=== PATIENT | female | born 1955 | race Caucasian/White ===

== ENCOUNTER → 2017-12-21 | Outpatient (CLI) | payer OTHER | LOC: ULTRA 07:43 | DX: M79.605 Pain in left leg (principal); M79.89 Other specified soft tissue disorders ==

== ENCOUNTER → 2019-01-18 | Outpatient (CLI) | payer OTHER ==
[~2019-01-18] VITALS: Ht 170.2 cm; Wt 57.6 kg
[~2019-01-18] MED LIST: ATENOLOL 50MG T50 M1 PO; HYDROCHLOROTHIA25 M2 PO; SYMBICORT160 MCG/4. INH; VENTOLIN HFA 1818 GM INH
--- NOTE | 2019-01-21 11:46 | P ---
[facility] [place] [address] PROCEDURE REPORT Name: GEORGES URIAS Room #: REG [facility]#: [id number] Admission: 01/18/19 ������������������ Attend Phys: Jimmy Mauro MD Discharge: ������������������ Date of : 51 Report #: [id number] THIS REPORT FOR: //name// CC: Jimmy Fowler MD BRIEF HISTORY: The patient is a 63-year-old woman for her first time screening colonoscopy. PREOPERATIVE DIAGNOSIS: Screening colonoscopy. POSTOPERATIVE DIAGNOSES: 1. Multiple colon polyps. 2. Moderate sigmoid diverticulosis coli. 3. Small internal hemorrhoids. MEDICATIONS: Deep sedation with propofol per Anesthesia. SPECIMENS: 1. Cecal polyp. 2. Polyp, mid transverse colon. 3. Polyp at 40 cm. 4. Polyp at 25 cm. ESTIMATED BLOOD LOSS: 3 mL. PROCEDURE: Colonoscopy to cecum and terminal ileum with snare polypectomy and biopsy. FINDINGS: Prior to propofol sedation, procedure of colonoscopy discussed with the patient as well as potential risks and its complications. She indicates she understands and desires to proceed. DESCRIPTION OF PROCEDURE: With the patient in left lateral decubitus position, digital examination was completed, which revealed no abnormalities. Subsequently, the Olympus video colonoscope was introduced in the rectum, advanced under direct vision to the cecum. She had a tortuous and difficult sigmoid colon. However, once we got the scope to the level of the sigmoid colon, scope passed easily into the proximal colon. The scope was then advanced across the ileocecal valve and the distal segment of terminal ileum, which was inspected and noted to be unremarkable. At that point, the scope was slowly withdrawn and careful circumferential views obtained. Upon slow withdrawal of the scope, the prep was excellent. The mucosa was within normal limits, normal vascular pattern, normal light reflex. As we withdrew the scope, she was found to have a 5 x 5 mm polyp in the cecum, which was removed by cold snare polypectomy and recovered. The scope was further withdrawn and a 7 x 8 mm [facility] [address] [place] [address] PROCEDURE REPORT Name: GEORGES URIAS Room #: REG [facility].#: [id number] Admission: 01/18/19 ������������������ Attend Phys: Jimmy Mauro MD Discharge: ������������������ Date of : 51 Report #: [id number] sessile polyp on a narrow base was seen and removed by cold snare polypectomy in the mid transverse colon. Scope was further withdrawn and no additional abnormalities were noted until about 40 cm, at which point, a 6 x 6 sessile polyp was seen and removed by cold snare polypectomy. In addition, at the sigmoid colon, there was noted to be moderately severe diverticular disease without endoscopic evidence of diverticulitis. At 25 cm, a diminutive polyp was seen and removed with biopsy forceps. Scope was further withdrawn and no additional polyps were seen. Upon retroflexion of the rectum, no abnormalities were seen. Scope was withdrawn and the patient tolerated the procedure well. CONDITION OF THE PATIENT UPON DISCHARGE: Following procedure, the patient drowsy, aroused, conversant and will be discharged home when fully ambulatory INSTRUCTIONS TO THE PATIENT AND FAMILY AT THE TIME OF DISCHARGE: Four polyps identified and removed as described above. We will follow up on the pathology. However, at this point in time, I would suggest she return in 3 years for a high risk screening colonoscopy. This is the patient's first colonoscopy. Withdrawal time from the cecum was 13 minutes 24 seconds. ��������������������������������������������� <ELECTRONICALLY SIGNED> ���������������������������������������� By: Jimmy Mauro MD ��������������������������������������������� 01/21/19 1146 [id number] 0150 Jimmy Mauro MD /nt
--- NOTE | 2019-01-21 18:05 | PATH ---
[facility] [place] [address] PATHOLOGY RPT PROCEDURE Name: GEORGES URIAS Room #: REG [facility].#: [id number] ������������������ Admission: 01/18/19 ������������������ Date of : 51 Discharge: Report #: [id number] Path Case #: [id number] [facility] Accession Number: [id number] . 01 Material submitted: . PART A: cecum - POLYP AT CECUM PART B: colon - POLYP AT MID TRANSVERSE COLON. Modifiers: mid, transverse PART C: colon - POLYP AT 40CM PART D: colon - BX POLYP AT 25CM . 01 Clinical history: . Pre-OP DX: Screening Post-OP DX: Colon polyps, diverticulosis, hemorrhoids . 02 Diagnosis: A. Polyp, at cecum, endoscopic biopsy: - Inflamed tubular adenoma. - Negative for high-grade dysplasia. . B. Polyp, at mid transverse colon, endoscopic biopsy: - Tubular adenoma. - Negative for high-grade dysplasia. . C. Polyp, at 40 cm, endoscopic biopsy: - Tubular adenoma. - Negative for high-grade dysplasia. . D. Polyp, at 25 cm, endoscopic biopsy: - Hyperplastic polyp. - Negative for dysplasia. . (IUV:rand sewer; 01/21/2019) MBR/01/21/2019 . 02 Electronically signed: . Radha Mckenna MD, Pathologist NPI- [id number] . 01 Gross description: . A. Received in formalin labeled "Georges Urias, polyp at cecum," is a single segment of solano soft tissue measuring 0.4 cm in maximum dimension. The specimen is entirely submitted in cassette A1. . B. Received in formalin labeled "Georges Urias, polyp at mid transverse colon," is a 0.8 x 0.5 x 0.5 cm polypoid piece of solano soft tissue. The margin is inked and the tissue is sectioned perpendicular to the margin and submitted in its entirely [place] [address] PATHOLOGY RPT PROCEDURE Name: GEORGES URIAS Room #: REG [facility]#: [id number] ������������������ Admission: 01/18/19 ������������������ Date of : 53 Discharge: Report #: [id number] Path Case #: [id number] . C. Received in formalin labeled "Georges Urias, polyp at 40 cm," are 2 segments of solano soft tissue measuring 1.1 x 0.5 x 0.5 cm in aggregate dimensions and ranging from 0.5 to 0.6 cm in maximum dimension. The specimen is submitted entirely in cassette C1. . D. Received in formalin labeled "Georges Urias, BX polyp at 25 cm," is a single segment of solano soft tissue measuring 0.4 cm in maximum dimension. The specimen is entirely submitted in cassette D1. (TSD; 01/18/2019) TOB/TOB . 02 Pathologist provided ICD-10: D12.0, D12.3, D12.6, K63.5 . 02 CPT . 928544, 097220, 435523, 033693 Specimen Comment: A courtesy copy of this report has been sent to Specimen Comment: [phone], . Specimen Comment: Report sent to / DR MADRID Performed at: [address], [place], [place] [id number] MD Yossi Peng MD Phone: [phone] Performed at: [address] [id number] MD Radha Mckenna MD Phone: [phone]
== END | disposition home or self-care (01) ==
LOC: GI 07:58
DX: Z12.11 Encounter for screening for malignant neoplasm of colon (principal); D12.0 Benign neoplasm of cecum; D12.3 Benign neoplasm of transverse colon; D12.5 Benign neoplasm of sigmoid colon; K63.5 Polyp of colon; K57.30 Diverticulosis of large intestine without perforation or abscess without bleeding; K64.8 Other hemorrhoids; Z87.891 Personal history of nicotine dependence; J45.909 Unspecified asthma, uncomplicated; I10 Essential (primary) hypertension; Z85.42 Personal history of malignant neoplasm of other parts of uterus; Z90.710 Acquired absence of both cervix and uterus
CPT/HCPCS: 62110; 62900

== ENCOUNTER → 2020-03-20 | Outpatient (CLI) | payer OTHER | LOC: LAB 16:33 | PROVIDERS: ATTEND Family Medicine | DX: R50.9 Fever, unspecified (principal); R05 Cough; Z20.828 Contact with and (suspected) exposure to other viral communicable diseases ==

== ENCOUNTER → 2021-04-26 | Outpatient (CLI) | payer OTHER | LOC: NUC 13:59 | PROVIDERS: ATTEND Family Medicine | DX: Z12.31 Encounter for screening mammogram for malignant neoplasm of breast (principal); M81.0 Age-related osteoporosis without current pathological fracture; N95.9 Unspecified menopausal and perimenopausal disorder; N91.2 Amenorrhea, unspecified ==

== ENCOUNTER 2021-07-25 14:37 | Observation (INO) | payer OTHER ==
[~2021-07-25] VITALS: Ht 170.2 cm; Wt 57.1 kg
--- NOTE | ~2021-07-25 | EMS ---
[address] [address] EMS Patient Care Report Name: GEORGES URIAS Room #: 209-P [facility].RCruz#: [id number] Admission: 07/25/21 Attend Phys: Blaze Fowler MD Discharge: Date of : 53 Report #: [id number] THIS REPORT FOR: //name// Report Transmitted: 07/26/2021 10:52 EMS Care Summary [place], [place]/[facility] Incident [id number] @ 07/25/2021 13:59 Incident Location [address] [place] [address] Patient GEORGES URIAS Female, 66 Years 1955 Patient Address [address] [place] [address] Patient History Asthma,Hypertension (HTN), Patient Allergies No known allergies, Chief Complaint SYNCOPE Disposition Transported No Lights/Smilax Dispatch Reason Unconscious/Fainting Transported To [facility] Narrative FAMILY CALLED 911 AFTER THE PATIENT HAD A SYNCOPE EPISODE WHILE SHE WAS COOKING IN THE KITCHEN. PATIENT WAS FOUND SITTING UPRIGHT ON THE KITCHEN FLOOR WITH R9 AT HER SIDE. PATIENT COMPLAINED OF FEELING DIZZY WHEN STANDING AND PAIN ON THE BACK OF HER HEAD AFTER SHE FELL. NO GROSS TRAUMA OR BLEEDING NOTED. PATIENT STATED THAT SHE [facility] [address] [place] [address] EMS Patient Care Report Name: GEORGES URIAS Room #: 209-P [facility]#: [id number] Admission: 07/25/21 Attend Phys: Blaze Fowler MD Discharge: Date of : 51 Report #: [id number] HAS BEEN FEELING DIZZY ON/OFF FOR SOMETIME. PATIENT DENIED ANY CHEST PAIN OR SOB. PATIENT WAS LOADED INTO THE AMBULANCE. VITALS ASSESSED AND IV OBTAIND. PATIENT APPEARED TO BE IN AFIB. PATIENT PLACED ON LOW FLOW O2 FOR TRANSPORT. PATIENT MONITORED DURING TRANSPORT. REPORT WAS GIVEN TO HOSPITAL STAFF AND ALL CARE WAS THEN TRANSFERRED OVER TO HOSPTIAL STAFF. Initial Vitals @14:14P: 86,CO: 2,SpO2: 93,SD Suspected: false @14:10P: 87,R: 16,BP: 164/79,Pain: 0/10,GCS: 15,Glucose: 144,CO: 0,SpO2: 90,Revised Trauma: 12, @14:20P: 83,R: 16,BP: 138/80,Pain: 0/10,GCS: 15,CO: 1,SpO2: 98,Revised Trauma: 12, Assessments @14:08MENTAL:Time Oriented,Person Oriented,Place Oriented,Event Oriented,SKIN:HEENT:Head/Face: CLARK,Neck/Airway: No Abnormalities,LUNG SOUNDS:General: No Abnormalities,ABDOMEN:General: No Abnormalities,PELVIS//GI:No Abnormalities,EXTREMITIES:Left Arm: No Abnormalities,Right Arm: No Abnormalities,PULSE:NEURO:No Abnormalities, Impression Syncope / Fainting Procedures @14:08 ALS Assessment Response: UnchangedSucceeded @14:16 IV Therapy - Saline Lock 0cc (18 ga) Site: Antecubital-Left Response: UnchangedSucceeded @14:14 3-Lead ECG Response: UnchangedSucceeded @14:14 12-Lead ECG Response: UnchangedSucceeded @14:15 Oxygen FlowRate: 3 Device: Nasal Cannula (NC) Response: ImprovedSucceeded Timeline 13:58,Call Received 13:58,Dispatch Notified 13:59,Dispatched 14:00,En Route 14:06,On Scene 14:07,At Patient 14:08,ALS Assessment,Response: UnchangedSucceeded, 14:10,BP: 164/79 M,PULSE: 87,RR: 16 R,SPO2: 90 Ox,ETCO2: ,B,PAIN: 0,GCS: 15, 14:14,3-Lead ECG,Response: UnchangedSucceeded, 14:14,12-Lead ECG,Response: UnchangedSucceeded, 14:14,BP: / M,PULSE: 86,RR: R,SPO2: 93 Ox,ETCO2: ,BG: ,PAIN: ,GCS: , [facility] [address] [place] [address] EMS Patient Care Report Name: GEORGES URIAS Room #: 209-P [facility] M.R.#: [id number] Admission: 07/25/21 Attend Phys: Blaze Fowler MD Discharge: Date of : 51 Report #: [id number] 14:15,Oxygen FlowRate: 3 Device: Nasal Cannula (NC) Response: ImprovedSucceeded, 14:16,IV Therapy - Saline Lock 0cc 18 ga Site: Antecubital-Left,Response: UnchangedSucceeded, 14:17,Depart Scene 14:20,BP: 138/80 M,PULSE: 83,RR: 16 R,SPO2: 98 Ox,ETCO2: ,BG: ,PAIN: 0,GCS: 15, 14:42,At Destination 14:56,Call Closed Disclaimer v1.1 Copyright 2020 [employer] This EMS Care Summary contains data elements from the applicable legal record (which may be displayed differently). It is designed to provide pertinent information for the following purposes: continuity of care, clinical quality, and state data reporting. The complete legal record is available to ED staff and administrators of the receiving hospital in [employer]'s Patient Tracker. All data is provided "as is."
[2021-07-25 14:38] VITALS: BP 122/54
[2021-07-25 15:28] LABS: ABSOLUTE NEUTROPHILS 4.2 thou/uL (1.4-8.2); BASOPHILS 0.7 % (0.0-2.0); EOSINOPHILS 1.6 % (0.0-3.0); HEMATOCRIT 40.6 % (37.0-47.0); HEMOGLOBIN 13.4 gm/dL (12.0-15.0); LYMPHOCYTES 26.5 % (24.0-44.0); MCH 33.4 pg (26.0-34.0); MCV 101.2 fL (80.0-100.0); MONOCYTES 9.7 % (1.0-8.0); PLATELET COUNT 280 thou/uL (150-400); POLYS 61.5 % (36.0-66.0); RBC 4.01 mil/uL (4.20-5.00); RDW 12.9 % (10.5-14.5); WBC 6.8 thou/uL (4.0-11.0)
[2021-07-25 15:37] LABS: CALCIUM 8.3 mg/dL (8.5-10.1); CREATININE 0.7 mg/dL (0.6-1.0); POTASSIUM 3.9 mmol/L (3.5-5.1)
[2021-07-25 15:47] LABS: ALBUMIN 2.9 g/dL (3.4-5.0); TOTAL BILIRUBIN 0.4 mg/dL (0.2-1.0); TOTAL PROTEIN 6.4 g/dL (6.4-8.2)
[2021-07-25 17:08] VITALS: BP 126/43
[2021-07-25 17:32] VITALS: BP 152/78
[2021-07-25 18:40] LABS: CHOLESTEROL 202 mg/dL (<200); HDL CHOLESTEROL 73 mg/dL (>40); LDL CHOLESTEROL 50 mg/dL (<100); TC:HDL 2.8 Ratio (Not establshd); TRIGLYCERIDE 399 mg/dL (<150); VLDL 80 mg/dL (<40)
[2021-07-25 19:30] VITALS: BP 134/67
--- NOTE | 2021-07-25 19:52 | NUR ---
RECEIVED PT FROM THE ER. ADMISSION COMPLETED. VSS, AFEBRILE, PT SWITCHES BETWEEN SR AND AFIB ON THE MONITOR. C/O DIZZINESS, AND PAIN IN HEAD AND HIP WHERE SHE FELL PREVIOUSLY IN THE DAY. RX ACETAMINOPHEN GIVEN WITH SOME RELIEF. POC IS TO BEGIN CIWA PROTOCOL PER MD. CARDIOLOGY CONSULTED FOR AFIB RVR. PT COMMUNICATED UNDERSTANDING FOR CALLING PRIOR TO GETTING OUT OF BED. CALL LIGHT AND NEEDS WITHIN REACH. FALL PRECAUTIONS IN PLACE. NO CONCERNS AT THIS TIME.
[2021-07-26 03:53] VITALS: BP 127/68
[2021-07-26 04:06] LABS: GLYCOHEMOGLOBIN (HGB A1C) 5.2 % (4.8-5.6)
[2021-07-26 04:28] LABS: HEMATOCRIT 37.1 % (37.0-47.0); HEMOGLOBIN 12.3 gm/dL (12.0-15.0); MCH 33.6 pg (26.0-34.0); MCHC 33.3 g/dL (28.0-37.0); MCV 100.7 fL (80.0-100.0); RBC 3.68 mil/uL (4.20-5.00); RDW 12.9 % (10.5-14.5); WBC 4.9 thou/uL (4.0-11.0)
[2021-07-26 04:35] LABS: CALCIUM 8.3 mg/dL (8.5-10.1); CREATININE 0.5 mg/dL (0.6-1.0)
--- NOTE | 2021-07-26 06:46 | NUR ---
PT AMBULATING TO BATHROOM WITH ASSIST AND IS TOLERATING FAIR. DENIES PAIN. RESTING COMFORTABLY. NO NEEDS VOICED. CALL LIGHT WITHIN REACH. FREQUENT OBSERVATION.
--- NOTE | 2021-07-26 07:09 | EKG ---
[address] [address] ELECTROCARDIOGRAM REPORT Name: BRIDGETTSUSANNEGEORGES MASSIEL Room #: 209-P [facility]#: [id number] Admission: 07/25/21 Attend Phys: Charlene Pepe MD Discharge: Date of : 51 Report #: [id number] [facility] ED Test Date: 2021-07-25 Test Time: 14:40:35 Pat Name: GEORGES URIAS Department: Room: [facility] Gender: F Machine Biller: SAMANTHA : 1955 Requested By: Antwan Lopez Order Number: [id number] MD: Jesse Moran Measurements Intervals [place] Rate: 73 P: 76 HI: 154 QRS: 33 QRSD: 89 T: 44 QT: 389 QTc: 429 Interpretive Statements Sinus rhythm Atrial premature complexes No previous ECG available for comparison Electronically Signed On 07-26-2021 7:08:46 CDT by Jesse Moran [email or web address] <ELECTRONICALLY SIGNED> By: Jesse Moran MD, [facility] 07/26/21 0708 1440 1440 Jesse Moran MD, FACC /EPI
--- NOTE | 2021-07-26 10:16 | 2DMMODE ---
[facility] [place] [address] 2 D/M-MODE ECHOCARDIOGRAM Name: GEORGES URIAS Room #: 209-P [facility] M.R.#: [id number] Admission: 07/25/21 Attend Phys: Blaze Fowler MD Discharge: Date of : 53 Report #: [id number] THIS REPORT FOR: cc: Blaze Fowler MD, Neal A. MD Santiago, Patrick MD [facility] ~ APPROVED REPORT Study performed: 07/26/2021 09:38:29 EXAM: Comprehensive 2D, Doppler, and color-flow Echocardiogram Patient Location: Bedside Room #: 209 Status: routine BSA: 1.66 HR: 76 bpm BP: 125/59 mmHg Rhythm: NSR Other Information Study Quality: Adequate Indications Syncope, Afib. Hx: HTN, ETOH abuse. 2D Dimensions IVSd: 9.28 (7-11mm) LVOT Diam: 20.55 (18-24mm) LVDd: 44.78 mm PWd: 8.84 (7-11mm) LVDs: 30.26 (25-40mm) Left Atrium: 25.55 (27-40mm) Aortic Root: 33.04 mm Volumes Left Atrial Volume (Systole) Single Plane 4CH: 22.34 mL Single Plane 2CH: 27.37 mL LA ESV Index: 17.00 mL/m2 Aortic Valve AoV Peak Lewis.: 1.20 m/s AO Peak Gr.: 5.72 mmHg LVOT Max P.97 mmHg LVOT Max V: 1.22 m/s SAMMY Vmax: 3.39 cm2 [facility] [address] [place] [address] 2 D/M-MODE ECHOCARDIOGRAM Name: GEORGES URIAS Room #: 209-P [facility]#: [id number] Admission: 07/25/21 Attend Phys: Blaze Fowler, Discharge: Date of : 51 Report #: [id number] AI Vmax: 3.99 m/s AI [place]: 2.44 m/s2 AI PHT: 474.17 ms Mitral Valve E/A Ratio: 1.2 MV Decel. Time: 245.41 ms MV E Max Lewis.: 0.83 m/s MV A Lewis.: 0.67 m/s MV PHT: 71.17 ms IVRT: 100.35 ms Pulmonary Valve PV Peak Lewis.: 0.88 m/s PV Peak Gr.: 3.09 mmHg Pulmonary Vein P Vein S: 0.49 m/s P Vein D: 0.39 m/s P Vein S/D Ratio: 1.26 Tricuspid Valve RAP Estimate: 5.00 mmHg Left Ventricle The left ventricle is normal size. There is normal LV segmental wall motion. There is normal left ventricular wall thickness. Left ventricular systolic function is normal. LVEF is 60-65%. Right Ventricle The right ventricle is normal size. The right ventricular systolic function is normal. Atria The left atrium size is normal. The right atrium size is normal. Aortic Valve The aortic valve is normal in structure. Trace aortic regurgitation. There is no aortic valvular stenosis. Mitral Valve The mitral valve is normal in structure. There is no mitral valve regurgitation noted. No evidence of mitral valve stenosis. Tricuspid Valve The tricuspid valve is normal in structure. There is no tricuspid [facility] [place] [address] 2 D/M-MODE ECHOCARDIOGRAM Name: GEORGES URIAS Room #: 209-P [facility] M.R.#: [id number] Admission: 07/25/21 Attend Phys: Blaze Fowler, Discharge: Date of : 51 Report #: [id number] valve regurgitation noted. Unable to assess PA pressure. Pulmonic Valve The pulmonary valve is normal in structure. Trace pulmonic regurgitation. Great Vessels The aortic root is normal in size. Ascending aorta is not well visualized. IVC is normal in size and collapses >50% with inspiration. Pericardium There is no pericardial effusion. <Conclusion> Normal left ventricle size/wall thickness Ejection fraction 60-65% Normal right ventricle size/function Normal atrial size Trace aortic valve insufficiency Normal mitral valve structure and function No tricuspid valve insufficiency Normal aortic root size No pericardial effusion Study performed in sinus rhythm <ELECTRONICALLY SIGNED> By: Macario Rojas MD, FACC 07/26/21 1016 1016 1016 Macario Rojas MD, FACC /INF
--- NOTE | 2021-07-26 10:41 | EKG ---
[address] [address] ELECTROCARDIOGRAM REPORT Name: GEORGES URIAS Room #: 209-[facility].#: [id number] Admission: 07/25/21 Attend Phys: Blaze Fowler MD Discharge: Date of : 51 Report #: [id number] [facility] Test Date: 2021-07-26 Test Time: 08:15:24 Pat Name: GEORGES URIAS Department: Room: 209 Gender: F Team Guide: RADHA : 1955 Requested By: Macario Rojas Order Number: [id number] MD: Macario Rojas Measurements Intervals [place] Rate: 78 P: 50 CT: 155 QRS: 6 QRSD: 95 T: 0 QT: 403 QTc: 460 Interpretive Statements Sinus rhythm Left atrial enlargement Nonspecific T abnormalities, anterior leads Baseline wander in lead(s) V6 Compared to ECG 07/25/2021 14:40:35 Atrial abnormality now present T-wave abnormality now present Atrial premature complex(es) no longer present Electronically Signed On 07-26-2021 10:41:05 CDT by Macario Rojas [email or web address] <ELECTRONICALLY SIGNED> By: Macario Rojas MD, FAC 07/26/21 1041 4 4 Macario Rojas MD, [facility] /EPI
[2021-07-26 12:32] VITALS: BP 143/83
[2021-07-26] MEDS ORDERED: CARDIZEM CD120 MG PO (15:21)
[2021-07-26] MEDS ORDERED: ELIQUIS5 MG PO (15:21)
[2021-07-26 15:52] VITALS: BP 143/83
--- NOTE | 2021-07-26 16:21 | NUR ---
PATIENT IS A/OX4, ABLE TO MAKE NEEDS KNOWN. VSS AFEBRILE. HR IS SR WITH EPISODES OF AFIB WITH RVR. PATIENT NPO THIS AM FOR NUCLEAR STRESS TEST. PATIENT ALSO HAD AN ECHO DONE TODAY. CONTINUES ON CIWA PROTOCOL BUT SCORING A ZERO ALL DAY. C/O RIGHT HIP PAIN 2/10, TYLENOL EFFECTIVE AT TREATING PAIN. PATIENT NEW ORDERS TO DC HOME. EDUCATED PATIENT ON DISCHARGE INSTRUCTION, NEW MEDICATIONS AND FOLLOW UP APPOINTMENTS;PATIENT VERBALIZED FULL UNDERSTANDING AT THIS TIME. PATIENT LEFT HOSPITAL VIA WC. SPOUSE TOOK PATIENT HOME.
[2021-07-26 16:31] VITALS: BP 119/92
== END 2021-07-26 16:44 | disposition home or self-care (01) ==
LOC: ER 14:37 → 2N 16:19 → EROBS 16:19 → 2N 16:53
PROVIDERS: Emergency Medicine; Internal Medicine; ADMIT Family Medicine; ATTEND Family Medicine
DX: R55 Syncope and collapse (principal); Z20.822 Contact with and (suspected) exposure to COVID-19; I48.20 Chronic atrial fibrillation, unspecified; I10 Essential (primary) hypertension; E03.9 Hypothyroidism, unspecified; J45.909 Unspecified asthma, uncomplicated; M81.0 Age-related osteoporosis without current pathological fracture; F10.10 Alcohol abuse, uncomplicated; Z79.82 Long term (current) use of aspirin; Z79.899 Other long term (current) drug therapy; Z87.891 Personal history of nicotine dependence; Z85.41 Personal history of malignant neoplasm of cervix uteri

== ENCOUNTER → 2021-08-09 | Outpatient (CLI) | payer OTHER ==
[~2021-08-09] MED LIST changes: +CARDIZEM CD120 MG PO; +ELIQUIS5 MG PO
== END ==
LOC: SJCVC 10:28
PROVIDERS: ATTEND Internal Medicine
DX: R94.31 Abnormal electrocardiogram [ECG] [EKG] (principal); I48.91 Unspecified atrial fibrillation; E78.1 Pure hyperglyceridemia; Z72.89 Other problems related to lifestyle

== ENCOUNTER → 2021-10-18 | Outpatient (CLI) | payer OTHER | LOC: SJCVC 14:47 | PROVIDERS: ATTEND Internal Medicine | DX: I48.91 Unspecified atrial fibrillation (principal); Z79.899 Other long term (current) drug therapy ==